=== PATIENT | male | born 1970 | race Caucasian/White ===

== ENCOUNTER 2020-10-31 11:44 | Emergency (ER) | payer MEDICAID, SELFPAY ==
[~2020-10-31] VITALS: Ht 167.6 cm; Wt 81.6 kg
[2020-10-31 11:46] VITALS: Ht 167.6 cm; Wt 81.6 kg
[2020-10-31 13:53] VITALS: BP 123/84
== END 2020-10-31 14:32 | disposition home or self-care (01) ==
LOC: ED 11:44
DX: U07.1 COVID-19 (principal); J12.89 Other viral pneumonia
CPT/HCPCS: U0003